=== PATIENT | female | born 1985 | race American Indian/Alaskan Native ===

== ENCOUNTER 2018-08-28 20:03 | Emergency (ER) | payer BC, OTHER ==
--- NOTE | 2018-08-29 00:40 | Emergency Department Report ---
ED Medical Clearance HPI - General Chief complaint: Medical Clearance Stated complaint: STUCK BY NEEDLE AT WORK Time Seen by Provider: 08/29/18 00:17 Source: patient Mode of arrival: Ambulatory - History of Present Illness Initial comments: 33-year-old -[place] female with no past medical history comes to the emergency room reporting that she had a needle stick at work today. 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 Patient reports that she was cleaning instruments and has stuck her finger with an estimated which elizabeth blood. 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 Patient does report that she cleaned her finger at work. Patient reports she had completed her hepatitis serology on 2010. Patient denies any pain or fever at this time. Reason for Medical Clearance: other (needle stick at work) Alledged Intoxication: No Compliant with Home Medications: No Treatments Prior to Arrival: none Home medications: Previous Rx's Medication Instructions Recorded Last Taken Type Ibuprofen [Motrin 800 MG tab] 800 mg PO Q8HR PRN #30 tablet 10/22/15 Unknown Rx Emtricitabine/Tenofovir (Tdf) 1 each PO QDAY #30 tablet 08/29/18 Unknown Rx [Truvada 100 mg-150 mg Tablet] Allergies/Adverse reactions: Allergies Allergy/AdvReac Type Severity Reaction Status Date / Time Penicillins Allergy Hives Verified 08/28/18 20:32 ED Review of Systems ROS: Stated complaint: STUCK BY NEEDLE AT WORK Other details as noted in HPI Comment: All other systems reviewed and negative ED Past Medical Hx - Past Medical History Additional medical history: Childbirth x2 - Surgical History Additional Surgical History: x2 - Social History Smoking Status: Never Smoker Substance Use Type: None - Medications Home Medications: Home Medications Medication Instructions Recorded Confirmed Last Taken Type Ibuprofen [Motrin 800 MG tab] 800 mg PO Q8HR PRN #30 tablet 10/22/15 Unknown Rx Emtricitabine/Tenofovir (Tdf) 1 each PO QDAY #30 tablet 08/29/18 Unknown Rx [Truvada 100 mg-150 mg Tablet] ED Physical Exam - General Limitations: No Limitations General appearance: alert, in no apparent distress - Head Head exam: Present: atraumatic, normocephalic - Eye Eye exam: Present: normal appearance - ENT ENT exam: Present: mucous membranes moist - Neck Neck exam: Present: normal inspection - Respiratory Respiratory exam: Present: normal lung sounds bilaterally. Absent: respiratory distress - Cardiovascular Cardiovascular Exam: Present: regular rate, normal rhythm. Absent: systolic murmur, diastolic murmur, rubs, gallop - GI/Abdominal GI/Abdominal exam: Present: soft, normal bowel sounds - Extremities Exam Extremities exam: Present: normal inspection - Back Exam Back exam: Present: normal inspection - Neurological Exam Neurological exam: Present: alert, oriented X3 - Psychiatric Psychiatric exam: Present: normal affect, normal mood - Skin Skin exam: Present: warm, dry, intact, normal color. Absent: rash ED Course Vital Signs 08/28/18 20:32 Temperature 98.9 F Pulse Rate 78 Respiratory 16 Rate Blood Pressure 126/57 O2 Sat by Pulse 99 Oximetry ED Medical Decision Making - Lab Data Result diagrams: 08/29/18 00:43 - Medical Decision Making Patient has been evaluated by this provider in fast track. Rapid HIV and hepatitis panel sent out which it came back all nonreactive. Patient requests to be placed on PreP Truvada since she does not know the source. I discussed the patient that she will need to be on Truvada for at least 4 wee ks. She needs to have her recheck of HIV in hepatitis in 4 weeks. I discussed the patient she needs to call Dr. Teri rodriguez infectious disease provider and make appointment for next week to be evaluated. Also referred patient to the primary care providers as well. Patient verbalized understanding ED Disposition Clinical Impression: Needle stick injury of finger Qualifiers: Encounter type: initial encounter Qualified Code(s): S61.239A - Puncture wound without foreign body of unspecified finger without damage to nail, initial encounter Disposition: - TO HOME OR SELFCARE Is pt being admited?: No Does the pt Need Aspirin: No Condition: Stable Instructions: Emtricitabine/Tenofovir (By mouth), Needle Stick Injuries (ED) Additional Instructions: Please take medication as prescribed. It is very important for you to follow up with infectious disease provider's name is Dr. Teri bourne and I have listed his information below. You to be tested in 4 weeks. Please refrain from unprotected intercourse until you have a follow-up blood work. Have also listed T primary care providers for your convenience. Prescriptions: Emtricitabine/Tenofovir (Tdf) [Truvada 100 mg-150 mg Tablet] 1 each PO QDAY #30 tablet Referrals: [facility] [Provider Group] - 3-5 Days PRIMARY CAREMD [Primary Care Provider] - 3-5 Days GOVIND BABCOCK MD [Staff Physician] - 3-5 Days TERI RODRIGUEZ MD [Staff Physician] - 3-5 Days Forms: Work/School Release Form(ED)
[2018-08-29 01:47] LABS: Hepatitis B Surface Antigen Non-Reactive (Negative); Hepatitis C Virus Antibody Non-Reactive (NonReactive)
[2018-08-29 02:53] LABS: BUN/Creatinine Ratio 17; Blood Urea Nitrogen 10 mg/dL (7-17); Calcium 9.2 mg/dL (8.4-10.2); Hemolysis Index 4
[2018-08-29 03:35] VITALS: BP 113/68
== END 2018-08-29 03:34 | disposition home or self-care (01) ==
LOC: ED 20:03
DX: S61.239A Puncture wound without foreign body of unspecified finger without damage to nail, initial encounter (principal); W22.8XXA Striking against or struck by other objects, initial encounter; Y93.E8 Activity, other personal hygiene; Y99.0 Civilian activity done for income or pay; Y92.59 Other trade areas as the place of occurrence of the external cause
CPT/HCPCS: 36415; 80048; 80074; 87806; 99283

== ENCOUNTER 2021-11-22 08:03 | Emergency (ER) | payer OTHER ==
[2021-11-22 08:11] VITALS: BP 122/77
[2021-11-22] MEDS ORDERED: CYCLOBENZAPRINE 10 MG TAB PO ONE (10:14)
[2021-11-22] MEDS ORDERED: KETOROLAC 60 MG/2 ML INJ IM ONE (10:14)
--- NOTE | 2021-11-22 10:19 | Emergency Department Report ---
ED Back Pain/Injury HPI - General Chief Complaint: Back Pain/Injury Stated Complaint: LOWER AB PAIN/LT SIDE Time Seen by Provider: 11/22/21 10:14 Source: patient Limitations: No Limitations - History of Present Illness Initial Comments: 36-year-old female presents with left lower abdominal discomfort radiating to the front that started 2 days ago progressively getting worse. Patient rated pain as 5/10 in severity. Patient denies any urinary symptoms such as dysuria or urinary frequency. No fever or chills noted. 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 Patient denies any other modifying or associated factors. MD Complaint: back pain - Related Data Previous Rx's Medication Instructions Recorded Last Taken Type Ibuprofen [Motrin 800 MG tab] 800 mg PO Q8HR PRN #30 tablet 10/22/15 Unknown Rx Cyclobenzaprine HCl [Flexeril 5 MG 5 mg PO TID 7 Days #21 tab 11/22/21 Unknown Rx TAB] Ketorolac [Toradol] 10 mg PO Q6H PRN 5 Days #20 tab 11/22/21 Unknown Rx Allergies Allergy/AdvReac Type Severity Reaction Status Date / Time Penicillins Allergy Hives Verified 08/28/18 20:32 ED Review of Systems ROS: Stated complaint: LOWER AB PAIN/LT SIDE Other details as noted in HPI Comment: All other systems reviewed and negative Musculoskeletal: back pain ED Past Medical Hx - Past Medical History Additional medical history: Childbirth x2 - Surgical History Additional Surgical History: x2 - Social History Smoking Status: Never Smoker - Medications Home Medications: Home Medications Medication Instructions Recorded Confirmed Last Taken Type Ibuprofen [Motrin 800 MG tab] 800 mg PO Q8HR PRN #30 tablet 10/22/15 Unknown Rx Cyclobenzaprine HCl [Flexeril 5 MG 5 mg PO TID 7 Days #21 tab 11/22/21 Unknown Rx TAB] Ketorolac [Toradol] 10 mg PO Q6H PRN 5 Days #20 tab 11/22/21 Unknown Rx ED Physical Exam - General Limitations: No Limitations General appearance: alert, in no apparent distress - Head Head exam: Present: normal inspection - Eye Eye exam: Present: normal appearance - ENT ENT exam: Present: normal exam, normal orophraynx, mucous membranes moist - Neck Neck exam: Present: normal inspection, full ROM - Respiratory Respiratory exam: Present: normal lung sounds bilaterally. Absent: respiratory distress, accessory muscle use - Cardiovascular Cardiovascular Exam: Present: regular rate, normal rhythm, normal heart sounds - GI/Abdominal GI/Abdominal exam: Present: soft, normal bowel sounds. Absent: distended, tenderness - Extremities Exam Extremities exam: Present: normal inspection, full ROM, normal capillary refill - Back Exam Back exam: Present: normal inspection, muscle spasm (Left lower back muscle), paraspinal tenderness - Neurological Exam Neurological exam: Present: alert, oriented X3 - Psychiatric Psychiatric exam: Present: normal affect, normal mood - Skin Skin exam: Present: warm ED Course Vital Signs 11/22/21 11/22/21 08:10 10:20 Temperature 97.8 F 98.5 F Pulse Rate 84 79 Respiratory 18 16 Rate Blood Pressure 122/77 [Right] O2 Sat by Pulse 99 100 Oximetry - Reevaluation(s) Reevaluation #1: 11/22/21 12:03 Patient reported feeling much better after the treatment with pain medicine and muscle relaxant--we will discharge home on pain medicine Flexeril with close follow-up-- ED Medical Decision Making - Medical Decision Making Left lower back pain with no red flag--no imaging indicated at this point--we will go ahead and treat for muscle spasm--we also check urinalysis to rule out any referred pain from urinary tract infection--given Toradol and Flexeril for symptomatic relief--we will have patient discharged home to close follow-up and on pain medicine and muscle relaxant. Critical care attestation.: If time is entered above; I have spent that time in minutes in the direct care of this critically ill patient, excluding procedure time. ED Disposition Clinical Impression: Lower back pain Qualifiers: Chronicity: acute Back pain laterality: left Sciatica presence: without sciatica Qualified Code(s): M54.50 - Low back pain, unspecified Disposition: 01 HOME / SELF CARE / HOMELESS Is pt being admited?: No Does the pt Need Aspirin: No Condition: Stable Instructions: What You Need to Know About Chronic Back Pain, Back Exercises, [id number], Preventing Back Pain for New Parents Additional Instructions: Take your pain medication as prescribed to help your symptoms It is okay to use [id number] topical analgesic to help your pain Call and schedule follow-up with your primary doctor in the next 3 to 5 days for progress Please do not hesitate to call or return to the emergency room if your symptoms worsen Prescriptions: Cyclobenzaprine HCl [Flexeril 5 MG TAB] 5 mg PO TID 7 Days #21 tab Ketorolac [Toradol] 10 mg PO Q6H PRN 5 Days #20 tab PRN Reason: Pain Referrals: [facility] [Other] - 3-5 Days Time of Disposition: 10:20 (Please discharge patient home after giving the pain medication and muscle relaxant)
[2021-11-22 11:56] LABS: Bilirubin,Urine Negative (Negative)
[2021-11-22 11:57] LABS: Blood,Urine Small (Negative); HCG Qualitative,Urine Negative (Negative); Protein,Urine <15 mg/dL mg/dL (Negative); Urobilinogen,Urine < 2.0 mg/dL (<2.0)
[2021-11-22 12:01] LABS: Hyaline Casts,Urine 1 /LPF; Mucus,Urine FEW /HPF
[2021-11-22 12:04] LABS: Color,Urine Straw (Yellow)
== END 2021-11-22 12:46 | disposition home or self-care (01) ==
LOC: ED 08:03
DX: M54.50 Low back pain, unspecified (principal)
CPT/HCPCS: 81001; 81025; 96372; 99283; J1885